=== PATIENT | female | born 1960 | race African-American/Black ===

== ENCOUNTER → 2017-09-09 | Outpatient (CLI) | payer BC ==
--- NOTE | 2017-09-09 10:12 | KCIC ---
MR of the left shoulder Indication: Left shoulder pain. Technique: Standard multiplanar sequences are obtained. Findings: Mild motion degradation. Acromioclavicular joint: Mildly degenerative. Mild undersurface joint hypertrophy. Rotator cuff: Mild thickening and signal compatible with tendinosis. There is a small linear undersurface tear of the anterior supraspinatus tendon, about 40-50 percent deep, and measuring no more than 1 cm AP diameter. No large or full-thickness tear. Trace fluid in the subdeltoid bursa. Subscapularis demonstrates mild partial tearing. Glenohumeral cartilage: No acute defect or advanced DJD. Fluid: No significant joint effusion. Labrum: Mild degenerative signal within the superior labrum, versus a small tear. Biceps tendon: Tendinosis Bones: No lesion or acute fracture. Soft tissue: No acute findings. Impression: 1. Rotator cuff tendinosis. Small partial thickness linear tear at the anterior supraspinatus tendon. Mild partial subscapularis tendon tear. No large or full-thickness rotator cuff tear. 2. Superior labral degeneration versus small tear. 3. Biceps tendinosis. Electronically signed by: Jorge Gil MD (09/09/2017 10:09 AM) [email or web address]
== END | disposition home or self-care (01) ==
LOC: KCIC MRI 07:56
PROVIDERS: ATTEND Orthopaedic Surgery
DX: S46.012A Strain of muscle(s) and tendon(s) of the rotator cuff of left shoulder, initial encounter (principal); X58.XXXA Exposure to other specified factors, initial encounter; Y93.89 Activity, other specified; Y92.89 Other specified places as the place of occurrence of the external cause; Y99.8 Other external cause status
CPT/HCPCS: 73221